=== PATIENT | female | born 1945 | race Caucasian/White ===

== ENCOUNTER 2019-09-20 10:26 | Outpatient (CLI) | payer MEDICARE, SELFPAY ==
[2019-09-20 10:55] LABS: Add Urine Microscopic? YES; Appearance Urine Cloudy (Clear); Bilirubin Urine Negative (Negative); Blood Urine Negative (Negative); Color Urine Yellow (Yellow); Glucose Urine UA Negative (Negative); Ketones Urine Negative (Negative); Leukocyte Esterase Ur 1+ LEU/UL (NEGATIVE); Mucus Urine Rare /lpf; Nitrate Urine Positive (Negative); Protein Urine Negative (Negative); RBC Urine 0-2 /hpf (0-2); Specific Grav Ur 1.013 (1.001-1.035); Squamous Epithelial Cell Urine Rare /hpf (Few); Urobilinogen Urine Negative mg/dL (<2.0)
[2019-09-20 10:58] LABS: Alanine Aminotransferase 24 U/L (4-35); Albumin Level 4.2 g/dL (3.5-5.1); Alkaline Phosphatase 44 U/L (38-126); Aspartate Amino Transferase 25 U/L (14-36); Bilirubin,Total 0.5 mg/dL (0.2-1.3)
== END 2019-09-20 10:27 | disposition home or self-care (01) ==
LOC: ANHLAB 10:28
PROVIDERS: PCP Family Medicine; Visit Provider Family Medicine
DX: R74.0 Nonspecific elevation of levels of transaminase and lactic acid dehydrogenase [LDH] (principal); R35.0 Frequency of micturition
CPT/HCPCS: 36415; 80076; 81001

== ENCOUNTER → 2020-01-20 13:48 | Outpatient (CLI) | payer MEDICARE, SELFPAY ==
--- NOTE | ~2020-01-20 | MM_ITS ---
EXAMINATION: MM screening [facility] BI w shayy HISTORY: Screening mammogram TECHNIQUE: Craniocaudal and mediolateral oblique 3-D tomosynthesis images were obtained and synthetic 2-D images were generated. CAD analysis was submitted and interpreted. COMPARISON: 11/13/2018, 09/28/2016, 09/26/2016, 09/14/2015 BREAST PARENCHYMAL COMPOSITION: The breasts are heterogeneously dense, which may obscure small masses . FINDINGS: There is no evidence of suspicious mass, calcification, or architectural distortion to sugg est malignancy in either breast. There has been no suspicious interval change. IMPRESSION: 1. No mammographic evidence of malignancy. 2. Recommend routine screening mammography in one year. BI-RADS Category 1: Negative Reviewed, dictated and finalized at location A.
== END ==
PROVIDERS: PCP Family Medicine; Visit Provider Physician Assistant
DX: Z12.31 Encounter for screening mammogram for malignant neoplasm of breast (principal)
CPT/HCPCS: 77063; 77067

== ENCOUNTER 2020-12-14 07:04 | Outpatient (CLI) | payer MEDICARE, SELFPAY ==
[2020-12-14 08:30] LABS: Alanine Aminotransferase 24 U/L (4-35); Albumin Level 4.3 g/dL (3.5-5.1); Alkaline Phosphatase 51 U/L (38-126); Anion Gap 7 mmol/L (8-16); Aspartate Amino Transferase 27 U/L (14-36); Bilirubin,Total 0.4 mg/dL (0.2-1.3); Blood Urea Nitrogen 17 mg/dL (7-17); Calcium 9.2 mg/dL (8.4-10.2); Carbon Dioxide 29 mmol/L (22-30); Chloride 104 mmol/L (98-107); Cholesterol 198 mg/dL (0-200); Estimated Glomerular Filt Rate > 60; Glucose 87 mg/dL (65-110); HDL Direct 63 mg/dL; Potassium 4.5 mmol/L (3.4-5.0); Sodium 140 mmol/L (137-145); Triglycerides 72 mg/dL (<150)
[2020-12-14 08:42] LABS: LDL Cholesterol Direct 100 mg/dL
== END 2020-12-14 07:05 | disposition home or self-care (01) ==
LOC: ANHLAB 07:06
PROVIDERS: PCP Family Medicine; Visit Provider Family Medicine
DX: E78.5 Hyperlipidemia, unspecified (principal)
CPT/HCPCS: 36415; 80053; 80061

== ENCOUNTER → 2021-04-12 13:04 | Outpatient (CLI) | payer MEDICARE, SELFPAY ==
--- NOTE | ~2021-04-12 | MM_ITS ---
EXAMINATION: MM screening [facility] BI w shayy HISTORY: Screening mammogram TECHNIQUE: Craniocaudal and mediolateral oblique 3-D tomosynthesis images were obtained and synthetic 2-D images were generated. CAD analysis was submitted and interpreted. COMPARISON: 01/20/2020, 11/13/2018 BREAST PARENCHYMAL COMPOSITION: There are scattered areas of fibroglandular density. FINDINGS: There is no evidence of suspicious mass, calcification, or architectural distortion to sugg est malignancy in either breast. There has been no suspicious interval change. IMPRESSION: 1. No mammographic evidence of malignancy. 2. Recommend routine screening mammography in one year. BI-RADS Category 1: Negative Reviewed, dictated and finalized at location A. 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
== END ==
PROVIDERS: PCP Family Medicine; Visit Provider Physician Assistant
DX: Z12.31 Encounter for screening mammogram for malignant neoplasm of breast (principal)
CPT/HCPCS: 77063; 77067

== ENCOUNTER 2021-04-25 10:28 | Outpatient (CLI) | payer MEDICARE, SELFPAY ==
--- NOTE | ~2021-04-25 | MR_ITS ---
EXAMINATION: MR lumbar spine wo [facility] EXAM DATE: 04/25/2021 11:15 INDICATION: Failing to improve with conservative measures. TECHNIQUE: Multi-sequential, multiplanar MR images of the lumbar spine were obtained without contrast . Sagittal T1, T2, T2 fat saturation images. Axial T2 weighted images. There is no prior study for comparison. FINDINGS: Mild to moderate disc disease from L2 through S1. There is 2 mm anterolisthesis L2 on L3, 3 mm anterolisthesis L3 on L4, 6 mm is anterolisthesis L4 on L5. No spondylolysis suspected. The conus medullaris terminates at the L1/2 level and has normal signal intensity and morphology. There is la rge hemangioma within the L3 vertebral body. Paraspinal soft tissue is unremarkable. Level by level evaluation: T12-L1: There is a mild diffuse disc bulge. Facet arthropathy: Mild. Neural foraminal stenosis: No stenosis. Central canal stenosis: No stenosis. L1-L2: There is a mild diffuse disc bulge. Facet arthropathy: Mild. Neural foraminal stenosis: No stenosis. Central canal stenosis: No stenosis. L2-L3: There is a moderate diffuse disc bulge. Facet arthropathy: Moderate to severe . Ligamentum flavum enlargement. Neural foraminal stenosis: Mild to moderate bilateral, right greater than left. Central canal stenosis: Mild to moderate. L3-L4: There is a moderate diffuse disc bulge. Facet arthropathy: Moderate to severe . Ligamentum flavum enlargement. Neural foraminal stenosis: Moderate left, mild to moderate right. Central canal stenosis: Mild to moderate. L4-L5: There is a large diffuse disc bulge. Facet arthropathy: Severe . Ligamentum flavum enlargement. Neural foraminal stenosis: Moderate bilateral, left greater than right. Central canal stenosis: Severe. L5-S1: There is a mild diffuse disc bulge. Facet arthropathy: Moderate to severe. Neural foraminal stenosis: Mild to moderate bilateral. Central canal stenosis: Mild. Compared to 2016, mild progression in spondylosis and subluxations. IMPRESSION: L4-5 grade 2 anterolisthesis, severe central canal stenosis without spondylolysis suspect ed. Less spondylosis other levels. Reviewed, dictated and finalized at location A. RNMENT AFFAIRS DIRECTOR IMPRESSION: L4-5 grade 2 anterolisthesis, severe central canal stenosis without spondylolysis suspected. Less spondylosis other levels.
== END 2021-04-25 10:29 | disposition home or self-care (01) ==
LOC: ANHIMG 10:33
PROVIDERS: PCP Family Medicine; Visit Provider Family Medicine
DX: M54.16 Radiculopathy, lumbar region (principal)
CPT/HCPCS: 72148

== ENCOUNTER → 2021-05-17 09:43 | Outpatient (CLI) | payer MEDICARE, SELFPAY ==
--- NOTE | ~2021-05-17 | CT_ITS ---
EXAMINATION: CT lumbar spine wo con DATE: 05/17/2021 10:00 INDICATION: Lumbar radiculopathy. Lumbar stenosis. TECHNIQUE: Computed tomography (CT) of the lumbar spine was performed without intravenous contrast. A utomated exposure control and iterative reconstruction technique were employed. The dose-length produ ct was 570.78 mGy-cm. COMPARISON: Lumbar spine MRI 04/25/2021 FINDINGS: There is 8 degrees levocurvature of lumbar spine. There is 3 mm anterolisthesis of L2 on L3 and L3 on L4 and 6 mm anterolisthesis of L4 on L5. Vertebral body heights are normal. There is mildl y decreased disc height at L2-L3 and L4-L5 and moderately decreased disc height at L5-S1. The followi ng disc levels are specifically discussed: L1-L2: The disc is bulging. There is mild bilateral facet joint osteoarthritis. There is mild left ne ural foraminal stenosis. There is mild central canal stenosis. L2-L3: The disc is bulging. There is severe bilateral facet joint osteoarthritis. There is mild bilat eral neural foraminal stenosis. There is mild central canal stenosis. L3-L4: The disc is bulging. There is severe bilateral facet joint osteoarthritis. There is moderate b ilateral neural foraminal stenosis. There is mild central canal stenosis. L4-L5: The disc is bulging. There is severe bilateral facet joint osteoarthritis. There is moderate b ilateral neural foraminal stenosis. There is severe central canal stenosis. L5-S1: The disc is bulging. There is severe bilateral facet joint osteoarthritis. There is mild bilat eral neural foraminal stenosis. There is mild central canal stenosis. IMPRESSION: 1. Severe lumbar spondylosis, stable from 04/25/2021. Reviewed, dictated and finalized at location A. TICIAN APPRENTICE
== END ==
PROVIDERS: PCP Family Medicine
DX: M47.27 Other spondylosis with radiculopathy, lumbosacral region (principal); M43.16 Spondylolisthesis, lumbar region; M48.062 Spinal stenosis, lumbar region with neurogenic claudication
CPT/HCPCS: 72131

== ENCOUNTER → 2021-08-06 10:54 | Outpatient (CLI) | payer MEDICARE, SELFPAY ==
--- NOTE | ~2021-08-06 | DEXA_ITS ---
Bone Density Report Name: SE JAMES Age: 76 Sex: Female Ethnicity: White Date of : 1945 Indication: osteopenia; monitoring treatment; height loss; Referring Provider: DULCE HATCH Study: Bone densitometry was performed. Exam Date: August 06, 2021 Accession number: [id number] Bone Density: Region BMD T-score Z-score Classification AP Spine (L1-L4) 1.032 -0.1 2.2 Normal Femoral Neck (Left) 0.656 -1.7 0.3 Osteopenia Total Hip (Left) 0.770 -1.4 0.3 Osteopenia Femoral Neck (Right) 0.588 -2.3 -0.3 Osteopenia Total Hip (Right) 0.786 -1.3 0.5 Osteopenia Total Hip Mean 0.778 -1.4 0.4 Osteopenia World Health Organization criteria for BMD impression classify patients as: Normal (T-score at or above -1.0), Osteopenia (T-score between -1.0 and -2.5), or Osteoporosis (T-score at or below -2.5). 10-year Fracture Risk: FRAX not reported because: Treated for osteoporosis Previous Exams: Region Exam Age BMD T-score BMD Change BMD Change Date g/cm2 vs Baseline vs Previous AP Spine(L1-L4) 08/06/2021 76 1.032 -0.1 0.169* 0.045* 12/26/2018 73 0.987 -0.5 0.124* 0.124* 09/14/2015 70 0.863 -1.7 Total Hip(Left) 08/06/2021 76 0.770 -1.4 -0.007 0.026 12/26/2018 73 0.744 -1.6 -0.032* -0.032* 09/14/2015 70 0.776 -1.4 Total Hip(Right) 08/06/2021 76 0.786 -1.3 -0.010 0.043* 12/26/2018 73 0.743 -1.6 -0.054* -0.054* 09/14/2015 70 0.796 -1.2 *Denotes significance at 95% confidence level, LSC for AP Spine = 0.022 g/cm2, LSC for Total Hip = 0.027 g/cm2 Clinical Information Provided by Patient: Is being treated for osteoporosis Has used the following medications: Fosamax (i.e. alendronate), Vitamin D, Calcium Patient maximum height was 65.0 Menopause Age: 62 No regular weight bearing exercise Drinks caffeinated beverages Onset of menses at age 15 Number of children 3 Impression: The patient has low bone mass, based on the Right Femoral Neck T-score. No significant bone loss was observed. Discussion: PATIENT UNDER TREATMENT WITH NO SIGNIFICANT BMD LOSS SINCE LAST EXAM. In an untreated patient, BMD typically declines with age. A lack of decline or gain is usually a sign that treatment is efficacious and fracture risk is reduced. It is important to ask patients whether they are taking their medications and to encourage continu
== END ==
PROVIDERS: PCP Family Medicine
DX: Z78.0 Asymptomatic menopausal state (principal); M85.89 Other specified disorders of bone density and structure, multiple sites
CPT/HCPCS: 77080

== ENCOUNTER 2021-12-25 08:00 | Outpatient (NON) | payer MEDICARE, SELFPAY | END 2021-12-25 08:01 | disposition home or self-care (01) | LOC: ANHLAB 09:54 | PROVIDERS: PCP Family Medicine; Visit Provider Physician Assistant | DX: N39.0 Urinary tract infection, site not specified (principal) | CPT/HCPCS: 87077; 87086; 87186 ==

== ENCOUNTER 2022-01-03 07:13 | Outpatient (CLI) | payer MEDICARE, SELFPAY ==
[2022-01-03 08:27] LABS: Add Urine Microscopic? YES; Appearance Urine Slightly Cloudy (Clear); Bilirubin Urine Negative (Negative); Blood Urine Negative (Negative); Color Urine Yellow (Yellow); Glucose Urine UA Negative (Negative); Ketones Urine Negative (Negative); Leukocyte Esterase Ur Trace LEU/UL (NEGATIVE); Nitrate Urine Positive (Negative); Protein Urine Negative (Negative); Urobilinogen Urine 0.2 mg/dL (<2.0); pH Urine 6.5 (5.0-9.0)
[2022-01-03 08:35] LABS: RBC Urine 0-2 /hpf (0-2)
== END 2022-01-03 07:14 | disposition home or self-care (01) ==
PROVIDERS: PCP Family Medicine; Visit Provider Physician Assistant
DX: N39.0 Urinary tract infection, site not specified (principal); R30.0 Dysuria
CPT/HCPCS: 81001; 87077; 87086; 87186

== ENCOUNTER 2022-01-08 07:00 | Outpatient (CLI) | payer MEDICARE, SELFPAY ==
[2022-01-08 08:11] LABS: Appearance Urine Clear (Clear); Bilirubin Urine Negative (Negative); Blood Urine Negative (Negative); Color Urine Yellow (Yellow); Glucose Urine UA Negative (Negative); Ketones Urine Negative (Negative); Leukocyte Esterase Ur Negative LEU/UL (Negative); Nitrate Urine Negative (Negative); Protein Urine Negative (Negative); Specific Grav Ur 1.015 (1.001-1.035); Urobilinogen Urine 0.2 mg/dL (<2.0)
[2022-01-08 08:55] LABS: Add Urine Microscopic? NO
== END 2022-01-08 07:01 | disposition home or self-care (01) ==
PROVIDERS: PCP Family Medicine; Visit Provider Physician Assistant
DX: N39.0 Urinary tract infection, site not specified (principal)
CPT/HCPCS: 81003

== ENCOUNTER → 2022-08-23 13:42 | Outpatient (CLI) | payer MEDICARE, SELFPAY ==
--- NOTE | ~2022-08-23 | MM_ITS ---
EXAMINATION: MM screening [facility] BI w shayy HISTORY: Screening TECHNIQUE: Craniocaudal and mediolateral oblique 3-D tomosynthesis images were obtained and synthetic 2-D images were generated. CAD analysis was submitted and interpreted. COMPARISON: Comparison to multiple prior studies sequentially, with oldest reviewed study dated 05/2016. BREAST PARENCHYMAL COMPOSITION: Breast composed of scattered areas of fibroglandular density FINDINGS: There is no evidence of suspicious mass, calcification, or architectural distortion to sugg est malignancy in either breast. There has been no suspicious interval change. IMPRESSION: 1. No mammographic evidence of malignancy. 2. Recommend routine screening mammography in one year. BI-RADS Category 2: Benign finding(s). Reviewed, dictated and finalized at location A.
== END ==
PROVIDERS: PCP Family Medicine; Visit Provider Family Medicine
DX: Z12.31 Encounter for screening mammogram for malignant neoplasm of breast (principal)
CPT/HCPCS: 77063; 77067

== ENCOUNTER 2022-08-31 09:53 | Outpatient (CLI) | payer MEDICARE, SELFPAY ==
[2022-08-31 10:18] LABS: Basophils Absolute Auto 0.1 K/mm3 (0.0-0.1); Basophils Percent Auto 0.9 % (0.2-1.2); Eosinophils Absolute Auto 0.2 K/mm3 (0-0.3); Hematocrit 37.2 % (37.0-47.0); Immature Granulocyte Absolute 0.07 K/mm3 (0.00-0.031); Immature Granulocyte Percent A 1.1 % (0-0.5); Lymphocytes Absolute Auto 1.49 K/mm3 (0.9-3.2); Lymphocytes Percent Auto 22.6 % (18.3-44.2); Mean Corpuscular HGB Conc 32.3 g/dl (32-36); Mean Corpuscular Hemoglobin 29.5 pg (26-34); Mean Corpuscular Volume 91.4 fl (80-100); Mean Platelet Volume 8.9 fl (7.4-10.4); Monocytes Absolute Auto 0.6 K/mm3 (0.1-0.6); Monocytes Percent Auto 9.7 % (2.6-8.5); Neutrophils Absolute Auto 4.1 K/mm3 (1.3-6.7); Neutrophils Percent Auto 62.7 % (45.5-73.1); Platelet Count Result 286 k/mm3 (150-375); Red Blood Count 4.07 M/mm3 (4.2-5.4); Red Cell Distribution Width 13.3 % (11.5-14.5); White Blood Count 6.6 K/mm3 (4.5-10.0)
[2022-08-31 10:30] LABS: Anion Gap 2 mmol/L (8-16); Blood Urea Nitrogen 15 mg/dL (7-17); Calcium 8.5 mg/dL (8.4-10.2); Carbon Dioxide 32 mmol/L (22-30); Chloride 101 mmol/L (98-107); Estimated Glomerular Filt Rate > 60; Glucose 86 mg/dL (65-110); Potassium 4.4 mmol/L (3.4-5.0); Sodium 135 mmol/L (137-145)
[2022-08-31 11:18] LABS: Appearance Urine Clear (Clear); Bilirubin Urine Negative (Negative); Blood Urine Negative (Negative); Color Urine Yellow (Yellow); Glucose Urine UA Negative (Negative); Ketones Urine Negative (Negative); Leukocyte Esterase Ur Negative LEU/UL (Negative); Nitrate Urine Negative (Negative); Protein Urine Negative (Negative); Specific Grav Ur 1.005 (1.001-1.035); Urobilinogen Urine 0.2 mg/dL (<2.0); pH Urine 7.5 (5.0-9.0)
[2022-08-31 11:21] LABS: Add Urine Microscopic? NO
== END 2022-08-31 09:54 | disposition home or self-care (01) ==
PROVIDERS: PCP Family Medicine; Visit Provider Nurse Practitioner Family
DX: M16.9 Osteoarthritis of hip, unspecified (principal); Z92.29 Personal history of other drug therapy; M81.0 Age-related osteoporosis without current pathological fracture
CPT/HCPCS: 36415; 80048; 81003; 85025

== ENCOUNTER 2023-01-02 15:40 | Outpatient (CLI) | payer MEDICARE, SELFPAY ==
[2023-01-02 18:38] LABS: Anion Gap 3 mmol/L (8-16); Blood Urea Nitrogen 17 mg/dL (7-17); Calcium 8.9 mg/dL (8.4-10.2); Carbon Dioxide 31 mmol/L (22-30); Chloride 101 mmol/L (98-107); Estimated Glomerular Filt Rate > 60; Glucose 106 mg/dL (65-110); Potassium 3.5 mmol/L (3.4-5.0); Sodium 135 mmol/L (137-145)
[2023-01-02 18:47] LABS: Basophils Absolute Auto 0.1 K/mm3 (0.0-0.1); Basophils Percent Auto 0.5 % (0.2-1.2); Eosinophils Absolute Auto 0.2 K/mm3 (0-0.3); Eosinophils Percent Auto 2.2 % (0-4.4); Hematocrit 37.7 % (37.0-47.0); Hemoglobin 12.3 g/dL (12.0-15.0); Immature Granulocyte Absolute 0.04 K/mm3 (0.00-0.031); Immature Granulocyte Percent A 0.4 % (0-0.5); Lymphocytes Absolute Auto 1.75 K/mm3 (0.9-3.2); Lymphocytes Percent Auto 19.1 % (18.3-44.2); Mean Corpuscular HGB Conc 32.6 g/dl (32-36); Mean Corpuscular Hemoglobin 29.9 pg (26-34); Mean Corpuscular Volume 91.7 fl (80-100); Mean Platelet Volume 9.3 fl (7.4-10.4); Monocytes Absolute Auto 0.7 K/mm3 (0.1-0.6); Monocytes Percent Auto 7.8 % (2.6-8.5); Neutrophils Absolute Auto 6.4 K/mm3 (1.3-6.7); Platelet Count Result 313 k/mm3 (150-375); Red Blood Count 4.11 M/mm3 (4.2-5.4); Red Cell Distribution Width 12.7 % (11.5-14.5); White Blood Count 9.2 K/mm3 (4.5-10.0)
== END 2023-01-02 15:41 | disposition home or self-care (01) ==
LOC: ANHGOSHLAB 15:42
PROVIDERS: PCP Family Medicine; Visit Provider Family Medicine
DX: Z01.818 Encounter for other preprocedural examination (principal)
CPT/HCPCS: 36415; 80048; 85025

== ENCOUNTER 2023-02-15 14:35 | Emergency (ER) | payer MEDICARE, SELFPAY ==
--- NOTE | ~2023-02-15 | XR_ITS ---
XR knee RT 3V DATE: 02/15/2023 16:19 INDICATION: Lateral knee joint pain. Knee surgery 2 weeks ago TECHNIQUE: AP, lateral and sunrise views COMPARISON: 06/20/2022 right knee FINDINGS: There has been interval medial compartment surgical joint replacement. There is periarticular spurring of the patellofemoral joint consistent with patellofemoral osteoarthr itis. The lateral compartment joint space is well preserved. No fracture or dislocation dictation, radiopaque intra-articular loose body or chondrocalcinosis, per iosteal reaction or bone destruction is detected. IMPRESSION: Recent medial compartment joint replacement Patellofemoral osteoarthritis Reviewed, dictated and finalized at location A.
[2023-02-15 14:57] VITALS: BP 144/96; PULSE 62; RESP 18; TEMP 36.4; O2SAT 100
--- NOTE | 2023-02-15 17:57 | ED.GENADULT ---
HPI - General Adult General Chief complaint: Extremity Problem,Nontraumatic Stated complaint: pain in posterior knee Time Seen by Provider: 02/15/23 17:47 History of Present Illness HPI narrative: Mariya Reyez is a 77 y/o female who presents with reports of a right knee replacement a little over 2 weeks ago, she states she has been doing well and able to ambulate without assistance. She states she did a little shopping today and afterwards she felt her right knee sort of lock up and she was afraid to put weight on her knee so she then lowered herself down to the ground and her friend helped her up. SHe reports that she is having a new pain to the right lateral aspect of her right knee. Related Data Home Medications Medication Instructions Recorded Confirmed vitamins A,C,U-gijw-azwycw 2,148 2 tablet PO BID 12/24/21 01/02/23 mcg-113 mg-45 mg-17.4 mg tablet (PreserVision AREDS) calcium carbonate 600 mg-vitamin 1 tablet PO BID 01/14/22 01/02/23 D3 20 mcg (800 unit) tablet denosumab 60 mg/mL subcutaneous 60 mg subcut [id number] 01/02/23 01/02/23 syringe (Prolia) Allergies Allergy/AdvReac Type Severity Reaction Status Date / Time No Known Allergies Allergy Verified 02/15/23 15:02 Review of Systems Review of Systems: CONSTITUTIONAL: Denies fever, chills, or sweats. EYES: Denies visual changes, redness, or discharge. ENT: Denies rhinorrhea, congestion, sore throat, or otalgia. CARDIOVASCULAR: Denies chest pain, palpitations, or edema. RESPIRATORY: Denies cough or dyspnea. GASTROINTESTINAL: Denies abdominal pain, nausea, vomiting, or diarrhea. GENITOURINARY: Denies dysuria or hematuria. SKIN: Denies rash or itching. MUSCULOSKELETAL: Denies back pain, Complains of pain to her right knee , or myalgia. NEUROLOGIC: Denies headache, numbness, dizziness, or weakness. PSYCHIATRIC: Denies anxiety or depression. 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 Ganglion cyst of dorsum of right wrist Hepatitis C antibody test negative (11/09/13) Left hip pain Lumbar radiculopathy Personal history of other drug therapy Right knee DJD Trigger finger Surgical History Surgical History Status post lumbar spine operative procedure for decompression of spinal cord Social History Social History Smoking status: Never smoker Alcohol intake: never Substance use: never Lack of Transportation: No Lack of Food: Never True Current Housing: I Have Housing Concerned About Future Housing: No Difficulty Paying Gas/Electric Bills: No Difficulty Paying for Meds: No Currently Unemployed: No Education: Bachelor's Degree Difficulty w/ Childcare or Family Care: No Living arrangements: with family Additional living arrangements comments: Spiritual care concerns: No Exam Narrative: GENERAL: Well-appearing, well-nourished, and in no acute distress. HEAD: Normocephalic, atraumatic. EYES: PERRLA and EOMI. ENT: Nares clear, no rhinorrhea or epistaxis. Mucous membranes moist. Oropharynx without tonsillar hypertrophy exudate or other lesions. Bilateral TMs pearly aggarwal nonbulging NECK: Supple. No adenopathy or masses. No carotid bruits or JVD CHEST: Clear to auscultation. No respiratory distress. No wheezes rales or rhonchi HEART: Regular rate and rhythm. No murmur heard. Normal peripheral pulses. ABDOMEN: Soft, nontender, nondistended, normal active bowel sounds. EXTREMITIES: Normal range of motion to her knee, distal pulses present, mild swelling to the lateral aspect, no warmth or concern for infection SKIN: Warm, dry, no rash. NEURO: No focal deficits. Alert and oriented x3. PSYCH: Normal mood and affect. Course Vital Signs Vital signs
== END 2023-02-15 18:27 | disposition home or self-care (01) ==
PROVIDERS: Emergency Provider Nurse Practitioner Family; PCP Family Medicine
DX: M25.561 Pain in right knee (principal); Z96.651 Presence of right artificial knee joint; M17.11 Unilateral primary osteoarthritis, right knee; M81.0 Age-related osteoporosis without current pathological fracture; M19.049 Primary osteoarthritis, unspecified hand; M16.9 Osteoarthritis of hip, unspecified
CPT/HCPCS: 73562; 99283

== ENCOUNTER 2023-04-10 11:00 | Outpatient (RCR) | payer MEDICARE, SELFPAY ==
--- NOTE | 2023-02-13 12:46 | OPREHPOC ---
Outpatient Therapy Plan of Care This is a Multidisciplinary Plan of Care that may contain components documented by all disciplines (PT, OT, and ST.) PT Problem 1 PT Problem #1 Knowledge Deficit PT Goal 1 Goal Pt to be IND with issued HEP Target Visit 4 PT Problem 2 PT Problem #2 Pain PT Goal 1 Goal Pt to report R knee pain no greater than 3/10 in the last week Target Visit 4 PT Goal 2 Goal Pt to report 75% improvement in overall knee symptoms Target Visit 4 PT Problem 3 PT Problem #3 Impaired Range of Motion PT Goal 1 Goal Pt to demonstrates full R knee extension to 0 deg Target Visit 4 PT Goal 2 Goal Pt to demonstrate R knee passive flexion to 130 deg Target Visit 4 PT Problem 4 PT Problem #4 Impaired Gait PT Goal 1 Goal Pt to ambulate stairs without an increase in pain or deviations Target Visit 4 PT Goal 2 Goal Pt to improve 2 min walk distance from 415ft to 475ft Target Visit 4
--- NOTE | 2023-02-13 12:46 | PTOPEVAL1 ---
Assessment and note entered by Lina Warren, PT, DPT Evaluation Information Assessment Status Evaluation Diagnosis R partial knee replacement Onset 01/27/23 Subjective Information Pt states she had a partial knee replacement on 01/27/23. She reports she has started to perform steps with a reciprocal pattern but these are more painful than normal. Reported Pain Level Pain Score 3: Self Report Assessment PT Clinical Summary Mariya presents to therapy today for her initial evaluation following a R medial partial knee replacement on 01/27/23. Today she demonstrates functional ROM but this is decreased from her L knee, she is lacking about 5 deg terminal knee extension. She demonstrates deviations while navigating stairs and reports increased pain when performing functional tasks. Skilled therapy services are indicated to improve ROM, strength, ambulation, and return to PLOF. Plan of Care Interventions Electrical Stimulation,Gait Training,Hot Pack/Cold Pack,Manual Therapy,Neuro Re-education,Patient/ Caregiver Educati,Therapeutic Activities, Therapeutic Exercise PT Services Indicated Yes Treatment Frequency and 1x/wk for 4 visits Duration These treatments will address the objective and functional deficits as defined above. The patient will be advanced safely and appropriately in order for the patient to progress towards his/her prior level of function. Additional exercises will be introduced and as well as a comprehensive home exercise program upon discharge, if needed, ?to ensure carryover of functional gains achieved in the clinic. This treatment plan has been reviewed and agreement upon by the patient.
--- NOTE | 2023-03-13 15:45 | PTOPPROG ---
Assessment and note entered by Lina Warren, PT, DPT Evaluation Information Assessment Status Progress Diagnosis R partial knee replacement Onset 01/27/23 Subjective Information Pt states her flexibility and movement is doing really well. She states she is still getting some swelling and heat under her patella. Assessment PT Clinical Summary Mariya presents to therapy today for her progress report following 4 visits of skilled therapy to treat her R medial partial knee replacement on 01/27. Today she demonstrates improved active flexion ROM, now equal to her L side, but continues to last about 8 deg from terminal knee extension. She ambulates with lack of terminal knee extension and accessory hip/pelvic motion. Continuation of skilled therapy services are indicated to improve knee extnesion, functional strength, gait, and return to PLOF. Plan of Care Interventions Electrical Stimulation,Gait Training,Hot Pack/Cold Pack,Manual Therapy,Neuro Re-education,Patient/ Caregiver Educati,Therapeutic Activities, Therapeutic Exercise PT Services Indicated Yes Treatment Frequency and 1x/wk for 4 visits Duration These treatments will address the objective and functional deficits as defined above. The patient will be advanced safely and appropriately in order for the patient to progress towards his/her prior level of function. Additional exercises will be introduced and as well as a comprehensive home exercise program upon discharge, if needed, ?to ensure carryover of functional gains achieved in the clinic. This treatment plan has been reviewed and agreement upon by the patient.
--- NOTE | 2023-04-10 11:45 | PTOPDC ---
Assessment and note entered by Lina Warren, PT, DPT Evaluation Information Assessment Status Discharge Diagnosis R partial knee replacement Onset 01/27/23 Subjective Information Overall she states her knee is doing much better. She states she is still fearful of loading all of her weight onto her RLE, she also states getting up from the ground has been difficult. Pt reports 80-85% improvement in overall symptoms. Reported Pain Level Pain Score 1: Self Report Assessment PT Clinical Summary Mariya presents to therapy today for her progress report following 8 visits of skilled therapy to treat her R medial partial knee replacement on 01/27. Today she demonstrates improved knee ROM, improved gait, and improved LE strength. She has met all of her therapy goals at this time and does not require additional services. Pts HEP was progressed today and she was instructed to continue this upon discharge.
== END 2023-04-10 13:43 | disposition home or self-care (01) ==
LOC: ANHGOSHPT 11:00
PROVIDERS: PCP Family Medicine; Visit Provider Family Medicine
DX: Z47.1 Aftercare following joint replacement surgery (principal); Z96.651 Presence of right artificial knee joint
CPT/HCPCS: 97110; 97140; 97161; 97530

== ENCOUNTER 2023-08-19 07:14 | Outpatient (CLI) | payer MEDICARE, SELFPAY ==
[2023-08-19 07:52] LABS: Basophils Absolute Auto 0.1 K/mm3 (0.0-0.1); Basophils Percent Auto 0.8 % (0.2-1.2); Eosinophils Absolute Auto 0.2 K/mm3 (0-0.3); Eosinophils Percent Auto 3.6 % (0-4.4); Hematocrit 39.1 % (37.0-47.0); Hemoglobin 12.4 g/dL (12.0-15.0); Immature Granulocyte Absolute 0.05 K/mm3 (0.00-0.031); Immature Granulocyte Percent A 0.8 % (0-0.5); Lymphocytes Absolute Auto 1.44 K/mm3 (0.9-3.2); Lymphocytes Percent Auto 22.3 % (18.3-44.2); Mean Corpuscular HGB Conc 31.7 g/dl (32-36); Mean Corpuscular Hemoglobin 29.2 pg (26-34); Mean Corpuscular Volume 92.2 fl (80-100); Monocytes Absolute Auto 0.7 K/mm3 (0.1-0.6); Monocytes Percent Auto 10.5 % (2.6-8.5); Platelet Count Result 305 k/mm3 (150-375); Red Blood Count 4.24 M/mm3 (4.2-5.4); Red Cell Distribution Width 13.4 % (11.5-14.5); White Blood Count 6.5 K/mm3 (4.5-10.0)
[2023-08-19 08:12] LABS: Anion Gap 3 mmol/L (8-16); Blood Urea Nitrogen 15 mg/dL (7-17); Calcium 9.4 mg/dL (8.4-10.2); Carbon Dioxide 33 mmol/L (22-30); Chloride 104 mmol/L (98-107); Estimated Glomerular Filt Rate > 60; Glucose 85 mg/dL (65-110); Potassium 3.6 mmol/L (3.4-5.0); Sodium 140 mmol/L (137-145)
== END 2023-08-19 07:15 | disposition home or self-care (01) ==
PROVIDERS: PCP Family Medicine; Visit Provider Nurse Practitioner Family
DX: K63.5 Polyp of colon (principal); E66.3 Overweight; E78.2 Mixed hyperlipidemia; M81.0 Age-related osteoporosis without current pathological fracture; R74.01 Elevation of levels of liver transaminase levels
CPT/HCPCS: 36415; 80048; 84443; 85025

== ENCOUNTER 2023-09-22 12:29 | Outpatient (CLI) | payer MEDICARE, SELFPAY ==
--- NOTE | ~2023-09-22 | MM_ITS ---
EXAMINATION: MM screening [facility] BI w shayy HISTORY: Screening mammogram TECHNIQUE: Craniocaudal and mediolateral oblique 3-D tomosynthesis images were obtained and synthetic 2-D images were generated. CAD analysis was submitted and interpreted. COMPARISON: 08/23/2022, 04/12/2021, 01/20/2020 bilateral screening mammogram examinations BREAST PARENCHYMAL COMPOSITION: There are scattered areas of fibroglandular density. FINDINGS: Stable mild fibroglandular asymmetry. There is no evidence of suspicious mass, calcificatio n, or architectural distortion to suggest malignancy in either breast. There has been no suspicious i nterval change. IMPRESSION: 1. No mammographic evidence of malignancy. 2. Recommend routine screening mammography in one year. BI-RADS Category 2: Benign finding(s). Reviewed, dictated and finalized at location A.
== END 2023-09-22 12:30 ==
PROVIDERS: PCP Family Medicine; Visit Provider Family Medicine
DX: Z12.31 Encounter for screening mammogram for malignant neoplasm of breast (principal); M81.0 Age-related osteoporosis without current pathological fracture
CPT/HCPCS: 77063; 77067

== ENCOUNTER 2023-10-13 11:25 | Outpatient (CLI) | payer MEDICARE, SELFPAY ==
--- NOTE | ~2023-10-13 | DEXA_ITS ---
? Bone Density Report? Name:? SE JAMES) Patient ID:??? [id number] Age:? 78 Sex:? Female Ethnicity:? White Date of : 1945 Indication: postmenopausal; screening for osteoporosis; height loss; prior fracture; Referring Provider: YANY CLAROS Study: Bone densitometry was performed. Exam Date: October 13, 2023 Accession number: [id number] Bone Density: Region? BMD??? T-score? Z-score?? Classification AP Spine(L1, L2)? 0.898?? -0.7?1.6? Normal Femoral Neck (Left)? 0.839?? -0.1? 2.1? Normal Total Hip (Left)? 0.833?? -0.9?1.0? Normal Femoral Neck (Right)? 0.613?? -2.1? 0.0? Osteopenia Total Hip (Right)? 0.793?? -1.2? 0.6? Osteopenia Femoral Neck Mean? 0.726?? -1.1? 1.0? Osteopenia Total Hip Mean? 0.813?? -1.1? 0.8? Osteopenia World Health Organization criteria for BMD impression classify patients as: Normal (T-score at or above -1.0), Osteopenia (T-score between -1.0 and -2.5), or Osteoporosis (T-score at or below -2.5). 10-year Fracture Risk: FRAX not reported because: ? Treated for osteoporosis Clinical Information Provided by Patient: Has had a low trauma fracture Is being treated for osteoporosis Has used the following medications: Prolia (i.e. denosumab), Vitamin D, Calcium Patient maximum height was 65 Menopause Age: 57 No regular weight bearing exercise Does not regularly consume dairy products Drinks caffeinated beverages Onset of menses at age 14 Number of children 3 Impression: The patient has low bone mass, based on the Right Femoral Neck T- score. The patient has risk factors, including: previous fracture. Discussion: It is important to ask patients whether they are taking their medications and to encourage continued and appropriate compliance with their osteoporosis therapies to reduce fracture risk. It is also important to review their risk factors and encourage appropriate calcium and vitamin D intakes, exercise, fall prevention and other lifestyle measures. Follow-Up: Consider a repeat BMD and Vertebral Fracture Assessment (VFA) exam in 2 years or sooner if medically necessary, to reassess this patient's status. Reported by: Dr. Aldo Wagner on 10/16/2023 7:16:00 AM. BERNICE
== END 2023-10-13 11:26 | disposition home or self-care (01) ==
LOC: CHSIMG 11:27
PROVIDERS: PCP Family Medicine; Visit Provider Nurse Practitioner Family
DX: Z78.0 Asymptomatic menopausal state (principal); M85.89 Other specified disorders of bone density and structure, multiple sites
CPT/HCPCS: 77080

== ENCOUNTER 2024-01-18 12:41 | Outpatient (CLI) | payer MEDICARE, SELFPAY ==
--- NOTE | ~2024-01-18 | MR_ITS ---
EXAMINATION: MR lumbar spine wo con DATE: 01/18/2024 13:20 INDICATION: Low back pain. Degenerative disc disease. TECHNIQUE: Magnetic resonance imaging (MRI) of the lumbar spine was performed without intravenous con trast. Sequences included sagittal T2-weighted FSE, sagittal T2-weighted FS FSE, sagittal T1-weighted FSE, and axial T2-weighted FSE. COMPARISON: CT dated 05/17/2021 FINDINGS: 10 degree lumbar levoscoliosis. 3 mm anterolisthesis L3 on L4 and 6 mm anterolisthesis L4 on L5. Vert ebral body heights are normal. T1 hyperintense hemangioma in the right side of the L3 vertebral body. Marrow signal is otherwise normal. Interval L4 laminectomy and partial L5 laminectomy. Moderate disc height loss at L4-L5. Mild disc height loss at L1-L2 through L3-L4 and at L5-S1. There are annular f issures at each of the lumbar levels. The conus medullaris terminates at L1-L2. There is normal signa l in the caudal spinal cord. Paravertebral soft tissues are unremarkable. The following disc levels a re specifically discussed: T12-L1: Disc is mildly bulging. There is moderate bilateral facet joint osteoarthritis. There is mild left neural foraminal stenosis. There is mild central canal stenosis. L1-L2: Disc is bulging. There is moderate bilateral facet joint osteoarthritis. There is mild bilater al neural foraminal stenosis. There is mild central canal stenosis. L2-L3: Disc is bulging. There is hypertrophy of the ligamentum flavum. There is moderate to severe bi lateral facet joint osteoarthritis. There is moderate right and mild left neural foraminal stenosis. There is moderate central canal stenosis. L3-L4: Disc is bulging with superimposed disc extrusion extending from foraminal zone and foraminal z one with disc material extending up to 4 mm cephalad to the level of the inferior endplate of L3. The re is hypertrophy of the ligamentum flavum. There is severe bilateral facet joint osteoarthritis. Th ere is moderate bilateral neural foraminal stenosis. There is severe central canal stenosis. L4-L5: Disc is bulging superimposed disc extrusion extending from foraminal zone and foraminal zone w ith disc material extending up to 4 mm cefotetan along the inferior endplate of L4. There is severe b ilateral facet joint osteoarthritis. There is moderate bilateral neural foraminal stenosis. There is mild central canal stenosis with posterior decompression. L5-S1: Disc is bulging. There is severe bilateral facet joint osteoarthritis. There is mild to modera te bilateral neural foraminal stenosis. There is mild central canal stenosis. IMPRESSION: 1. Moderate lumbar spondylosis most notable for severe central canal stenosis at L3-L4 and interval p osterior decompression with L4 laminectomy and partial L5 laminectomy. Reviewed, dictated and finalized at location A. IMPRESSION: 1. Moderate lumbar spondylosis most notable for severe central canal stenosis a t L3-L4 and interval posterior decompression with L4 laminectomy and partial L5 laminectomy.
== END 2024-01-18 12:42 ==
LOC: GOSHIMG 12:43
PROVIDERS: PCP Family Medicine; Visit Provider Nurse Practitioner Acute Care
DX: M51.36 Other intervertebral disc degeneration, lumbar region (principal); M47.896 Other spondylosis, lumbar region
CPT/HCPCS: 72148

== ENCOUNTER 2024-03-13 11:40 | Outpatient (CLI) | payer MEDICARE, SELFPAY ==
[2024-03-13 12:02] LABS: Basophils Absolute Auto 0.1 K/mm3 (0.0-0.1); Basophils Percent Auto 0.9 % (0.2-1.2); Eosinophils Absolute Auto 0.2 K/mm3 (0-0.3); Eosinophils Percent Auto 3.1 % (0-4.4); Hematocrit 36.6 % (37.0-47.0); Immature Granulocyte Absolute 0.03 K/mm3 (0.00-0.031); Immature Granulocyte Percent A 0.4 % (0-0.5); Lymphocytes Absolute Auto 1.17 K/mm3 (0.9-3.2); Lymphocytes Percent Auto 15.3 % (18.3-44.2); Mean Corpuscular HGB Conc 32.8 g/dl (32-36); Mean Corpuscular Hemoglobin 30.4 pg (26-34); Mean Corpuscular Volume 92.7 fl (80-100); Mean Platelet Volume 8.9 fl (7.4-10.4); Monocytes Absolute Auto 0.8 K/mm3 (0.1-0.6); Monocytes Percent Auto 10.2 % (2.6-8.5); Neutrophils Absolute Auto 5.4 K/mm3 (1.3-6.7); Neutrophils Percent Auto 70.1 % (45.5-73.1); Platelet Count Result 289 k/mm3 (150-375); Red Blood Count 3.95 M/mm3 (4.2-5.4); Red Cell Distribution Width 13.1 % (11.5-14.5); White Blood Count 7.6 K/mm3 (4.5-10.0)
[2024-03-13 12:16] LABS: Alanine Aminotransferase 101 U/L (6-35); Albumin Level 4.1 g/dL (3.5-5.1); Alkaline Phosphatase 80 U/L (38-126); Anion Gap 6 mmol/L (4-12); Aspartate Amino Transferase 71 U/L (14-36); Bilirubin,Total 0.8 mg/dL (0.2-1.3); Blood Urea Nitrogen 12 mg/dL (7-17); Calcium 8.7 mg/dL (8.4-10.2); Carbon Dioxide 31 mmol/L (22-30); Chloride 101 mmol/L (98-107); Cholesterol 225 mg/dL (0-200); Estimated Glomerular Filt Rate 48; Glucose 93 mg/dL (65-110); HDL Direct 56 mg/dL; Potassium 4.5 mmol/L (3.4-5.0); Sodium 138 mmol/L (137-145); Triglycerides 302 mg/dL (<150)
[2024-03-13 12:27] LABS: LDL Cholesterol Direct 127 mg/dL
[2024-03-13 13:25] LABS: Vitamin D 25 Hydroxy 46.2 ng/mL
== END 2024-03-13 11:41 | disposition home or self-care (01) ==
LOC: ANHLAB 11:43
PROVIDERS: PCP Family Medicine; Visit Provider Nurse Practitioner Family
DX: E55.9 Vitamin D deficiency, unspecified (principal); E78.2 Mixed hyperlipidemia; E66.3 Overweight; M81.0 Age-related osteoporosis without current pathological fracture; R74.01 Elevation of levels of liver transaminase levels
CPT/HCPCS: 36415; 80053; 80061; 82306; 84443; 85025

== ENCOUNTER 2024-11-18 11:45 | Outpatient (CLI) | payer MEDICARE, SELFPAY ==
--- NOTE | ~2024-11-18 | MM_ITS ---
EXAMINATION: [facility] HISTORY: 09/22/2023, 08/23/2022 TECHNIQUE: Craniocaudal and mediolateral oblique 3-D tomosynthesis images were obtained and synthetic 2-D images were generated. CAD analysis was submitted and interpreted. COMPARISON: No prior mammogram is available for comparison at this institution. BREAST PARENCHYMAL COMPOSITION:Not Dense. There are scattered areas of fibroglandular density. FINDINGS: No suspicious mass, calcification, or architectural distortion are identified in either melissa ast to suggest malignancy. There has been no suspicious interval change. IMPRESSION: No mammographic evidence of malignancy. Recommend routine screening mammography in one year. BI-RADS Category 1: Negative Reviewed, dictated and finalized at location .
== END 2024-11-18 11:46 | disposition home or self-care (01) ==
LOC: CHSIMG 11:46
PROVIDERS: PCP Family Medicine; Visit Provider Family Medicine
DX: Z12.31 Encounter for screening mammogram for malignant neoplasm of breast (principal)
CPT/HCPCS: 77063; 77067

== ENCOUNTER 2024-12-10 10:26 | Outpatient (CLI) | payer MEDICARE, SELFPAY ==
--- OUTSIDE RECORDS SUMMARY | 2024-12-10 10:39 | XMS_ITS | Clinical Summary ---
Author Organization [facility] Address [address] [place] [address] Phone Care Team Providers Care Poultry Slaughterer Name Role Phone Ariel Yarbrough MD Primary Care Provider [phone] Allergies No known active allergies Medications atorvastatin (LIPITOR) 10 mg tablet Take 10 mg by mouth daily. Active CALCIUM CITRATE-VITAMIN D3 ORAL Take by mouth. Active alendronate (FOSAMAX) 70 mg tablet Take 70 mg by mouth every 7 days. empty stomach before other meds,with 8oz of water, stay upright 30 min Active OTHER AREDS EYE DROPS Active Active Problems No known active problems Family History Medical History Relation Name Comments Cancer Father Heart Disease Sister High Cholesterol Sister Relation Name Status Comments Father Sister Social History Tobacco Use Types Packs/Day Years Used Date Smoking Tobacco: Never Alcohol Use Standard Drinks/Week Comments Never 0 (1 standard drink = 0.6 oz pur e alcohol) Comments Unknown Sex and Gender Information Value Date Recorded Sex Assigned at Not on file Legal Sex Female 9:03 AM HOSPITALITY INTERN Gender Identity Not on file Sexual Orientation Not on file Last Filed Vital Signs Vital Sign Reading Time Taken Comments Blood Pressure 147/78 07/20/2021 9:07 AM HOSPITALITY INTERN Pulse 63 07/20/2021 9:07 AM HOSPITALITY INTERN Temperature 36.5 C (97.7 F) 07/20/2021 9:07 AM HOSPITALITY INTERN Respiratory Rate - - Oxygen Saturation - - Inhaled Oxygen Concentration - - Weight 67.1 kg (148 lb) 07/20/2021 9:07 AM HOSPITALITY INTERN Height 162.6 cm (5' 4) 07/20/2021 9:07 AM HOSPITALITY INTERN Body Mass Index 25.4 07/20/2021 9:07 AM HOSPITALITY INTERN Plan of Treatment Health Maintenance Due Date Last Done Comments DTAP/TDAP/TD VACCINES (1 - Tdap) 1966 OSTEOPOROSIS SCREENING 2012 PNEUMOCOCCAL VACCINE 50+ YEA RS (2 of 2 - PPSV23) 12/11/2018 12/11/2017 ZOSTER VACCINE (2 of 2) 05/10/2020 03/15/2020 RSV VACCINE (60+ or ) (1 - 1-dose 75+ series) 2022 INFLUENZA VACCINE (#1) 2024 , 02/28/2020, 03/08/2018 Insurance Care Teams Poultry Slaughterer Relationship Specialty Start Date End Date Ariel Yarbrough MD PCP - General Family Practice 06/21/21
--- OUTSIDE RECORDS SUMMARY | 2024-12-10 10:39 | XMS_ITS | Clinical Summary ---
Author Organization [facility] Address [address] [place] [address] Care Team Providers Care Alcohol Rubber Name Role Phone Ariel Yarbrough MD Primary Care Provider [phone]- [phone] Usama Savage MD Unavailable [phone] Source Comments [facility] [employer],non-owned Affiliates and Associated Physician Practices is amultiple site organization consisting of ambulatory clinics and hospital sitesin [place], [place], [place] and [place]. This disclosure is being madepursuant to the Care Everywhere program and may not contain all information available regarding this patient. Last updated 18.[facility] [employer] Allergies No known active allergies Medications * Be aware that medications may not be up to date on this document. Alwaysverify current medications with the patient. atorvastatin (LIPITOR) 10 MG tablet 12/11/2018 Active meloxicam (MOBIC) 15 MG tablet 01/08/2019 Active alendronate (FOSAMAX) 70 MG tablet 01/08/2019 Active meloxicam (MOBIC) 15 MG tablet Take 1 tablet by mouth once daily 90 tablet 1 01/23/2019 Active Social History Tobacco Use Types Packs/Day Years Used Date Smoking Tobacco: Never Assessed Comments Unknown Sex and Gender Information Value Date Recorded Sex Assigned at Not on file Legal Sex Female 12:47 PM CDT Gender Identity Not on file Sexual Orientation Not on file Plan of Treatment Health Maintenance Due Date Last Done Comments BONE DENSITY TESTING 1945 HEPATITIS C SCREENING 05/22/1965 DTAP/TDAP/TD VACCINES (1 - Tdap) 1966 PNEUMOCOCCAL VACCINE 50+ (1 of 1 - PCV) 1997 ZOSTER VACCINE (1 of 2) 1997 Respiratory Syncytial Virus (RSV) Vaccine Pt: or over 60 yrs (1 - 1-dose 75+ series) 2022 COVID-19 VACCINE (2023-2 5 season) 2024 DEPRESSION SCREENING 05/29/2024 MEDICARE AWV CALENDAR YEAR 2024 INFLUENZA VACCINE (#1) 2025 HEPATITIS B VACCINE Aged Out No longe r eligible based on patient's age to complete this topic HIB VACCINE Aged Out No longer eligi ble based on patient's age to complete this topic HPV VACCINE Aged Out No longer eligi ble based on patient's age to complete this topic MENINGOCOCCAL (Group B) VACC INE SHARED DECISION-MAKING Aged Out No longer eligibl e based on patient's age to complete this topic MENINGOCOCCAL GROUPS A/C/Y/W VACCINE Aged Out No longer eligible b ased on patient's age to complete this topic Insurance [facility] MANAGED MEDICARE ADV Care Teams Alcohol Rubber Relationship Specialty Start Date End Date Ariel Yarbrough MD [address] [place] [id number] PCP - General Family Medicine 01/09/19 [place] [id number] [address] Orthopedic Surgery 01/17/19
--- OUTSIDE RECORDS SUMMARY | 2024-12-10 10:39 | XMS_ITS | Patient Health Record ---
Author Organization [facility] Orthopedics [facility] Address [address] [place], [place] [address] Care Team Providers Care Complaint Evaluation Supervisor Name Role Phone Ariel Yarbrough Primary Care Provider Hernando Perales Unavailable [phone] ALLERGIES No Known Allergies REASON FOR REFERRAL No Information MEDICATIONS Medication SIG (Take, Route, Fr equency, Duration) Notes Start Date End Date Status Atorvastatin Calcium Active Vitamin D Active PreserVision AREDS 2 Active Proline Active SOCIAL HISTORY Tobacco Use: Social History Observation Description Date Details (start date - stop date) Never Smoker NA - NA Sex Assigned At : Social History Observation Description Sex Assigned At Unknown Tobacco Use/Smoking Question Answer Notes Are you a nonsmoker PROBLEMS Problem Type ICD Code Onset Dates Problem Status W/U Status Risk SNOMED Code Notes Problem Left hip pain (M25.552) Active confirmed Arthralgia of t he pelvic region and thigh (930993161) Problem Right knee pain (M25.561) Active confirmed Right knee pain (592018171941898) Problem Arthritis of right knee (M17.11) Active confirmed Arthritis of right knee (9842206011968394 ) Problem Antalgic gait (R26.89) Active confirmed Antalgic gait (07505732) Problem Presence of artificial knee joint (Z96.659) Active confirmed Artificial k nee joint present (212660215241) Problem Primary osteoarthritis of right knee (M17.11) Active confirmed Osteoarthritis of knee (831769951) Encounters Encounter Location Date Provider Diagnosis [facility] [address] [place], [place] [id number] 02/01/2024 Hernando De La Torre PLAN OF TREATMENT Pending Test Test Name Order Date X ray : Hip, left, 2 09/27/2022 X ray : Knee, right 2 views 12/27/2022 X ray : Knee, right 3 views 05/04/2023 X ray : Knee, right 3 views 11/24/2022 Insurance Providers Payer Name Payer Address Payer Phone Subscriber Number Group Number Insured Name Patient Relationship to Insured Coverage Start Date Coverage End Date [facility] [address] [address] [address] [place] [address] [id number] Mariya Reyez Self - patient is the insured MEDICAL (GENERAL) HISTORY Medical History History ICD Code Arthritis Surgical History Surgery Date(Month/Year) Bunionectomy Lumbar Decompression L4-L5 Sling
--- OUTSIDE RECORDS SUMMARY | 2024-12-10 10:39 | XMS_ITS ---
Author Organization [facility] Orthopedics [facility] Address [address] [place], [place] [id number] Care Team Providers Care Suppression Crew Leader Name Role Phone Ariel Yarbrough Primary Care Provider Hernando Perales Unavailable [phone] REASON FOR VISIT 1 yr f/u Encounters Encounter Location Date Provider Diagnosis [facility] Orthopedics [facility] [address] [place], [place] [id number] 02/01/2024 Hernanod De La Torre PLAN OF TREATMENT No Information
--- OUTSIDE RECORDS SUMMARY | 2024-12-10 10:39 | XMS_ITS | Encounter Summary ---
Author Organization [facility] Address [address] [place] [address] Care Team Providers Care Asbestos Handler Name Role Phone Ariel Yarbrough MD Primary Care Provider [phone] Edwin Esparza MD Unavailable Reason for Visit * Diagnostic Imaging (Routine) - Closed Specialty Diagnoses / Procedures Referred By Jung bertrand Referred To Contact Diagnoses Right knee pain, unspecified chronicity Procedures XR Knee Right 3 Views Hernando De La Torre MD Phone: tel: fax: [facility] Referral ID Status Reason Start Date Expiration Date Visits Re quested Visits Authorized [id number] Closed 10/12/2023 11/10/2024 1 1 Encounter Details Date Type Department Care Team (Late st Contact Info) Description 10/12/2023 9:05 AM CDT Hospital Encounter [facility] Orthopedics and Sports Medicine at [address] [address] Social History Tobacco Use Types Packs/Day Years [...] on file Legal Sex Female 11:06 AM LUMBER PILER Gender Identity Not on file Sexual Orientation Not on file documented as of this encounter Functional Status * Audit-C Score Answer Date of Assessment Author 0 [...] on filedocumented in this encounter Care Teams Asbestos Handler Relationship Specialty Start Date End Date Ariel Yarbrough MD PCP - General 12/14/16 Edwin Esparza MD Referring Physician Neurosurgery 01/29/22 documented as of this encounter
--- OUTSIDE RECORDS SUMMARY | 2024-12-10 10:39 | XMS_ITS | Clinical Summary ---
Author Organization [facility] Address [address] [place], [address] [address] Phone Care Team Providers Care Hem Marker Name Role Phone Ariel Yarbrough MD Primary Care Provider [phone] Medications polyethylene glycol (MIRALAX) Powder Use entire 255g bottle with 64oz of clear liquid as directed for colonoscopy prep. 2 Bottle 8 Active Social History Tobacco Use Types Packs/Day Years Used Date Smoking Tobacco: Never Assessed Comments Unknown Sex and Gender Information Value Date Recorded Sex Assigned at Not on file Legal Sex Female 12:06 AM CDT Gender Identity Not on file Sexual Orientation Not on file Plan of Treatment Health Maintenance Due Date Last Done Comments DEXA Bone Density 1945 Hepatitis C Virus (HCV) Screening 1945 TdaP Immunization 1945 Pneumococcal Immunization (5 0+ years) (1 of 1 - PCV) 1997 Zoster Immunization (1 of 2) 1997 Respiratory Syncytial Virus (RSV) Immunization (Adult) (1 - 1-dose 75+ series) 2022 Influenza Immunization (#1) 2024 SARS-COV-2 Immunization ( - season) 2024 Hepatitis B Immunization Aged Out No longer eligible based on patient's age to complete this topic Meningococcal Immunization (ACWY) Aged Out No longer eligible based on patient's age to complete this topic Rotavirus Immunization Aged Out No lo nger eligible based on patient's age to complete this topic Insurance MEDICARE C [employer] on file Care Teams Hem Marker Relationship Specialty Start Date End Date Ariel Yarbrough MD [address] [place] [address] [address] [place] [address] PCP - General Family Medicine 12/02/16
--- OUTSIDE RECORDS SUMMARY | 2024-12-10 10:39 | XMS_ITS | Referral Summary ---
Author Organization [facility] Address [address] [place] [address] Care Team Providers Care Business Services Intern Name Role Phone Ariel Yarbrough MD Primary Care Provider [phone] Edwin Esparza MD Unavailable [phone] Encounters Date Type Department Care Team Description 10/16/2024 9:13 AM CDT - 10/16/2024 11:59 PM CDT Hospital Encounter [facility] [address] [facility] [address] [place] [address] S/P total left hip arthroplasty Discharge Disposition: Discharge to home or self care 10/16/2024 9:40 AM CDT Office Visit [facility] Orthopaedic Surgery [address] [facility] Medical Office Building [address] [place] [address] Vladimir Pearson MD S/P total left hip arthroplasty (Primary Dx); Surgical follow-up care 09/17/2024 11:47 AM CDT - 09/18/2024 10:57 AM CDT Hospital Encounter [facility] [address] [address] [place] [address] Vladimir Pearson MD Osteoarthritis of left hip, unspecified osteoarthritis type (Primary Dx) Discharge Disposition: Discharge to home or self care 09/17/2024 2:45 PM CDT - 09/17/2024 4:25 PM CDT Surgery [facility] Operating Room [address] [place] [address] Vladimir Pearson MD ARTHROPLASTY TOTAL HIP - DEPUY 09/17/2024 2:31 PM CDT Anesthesia Event [facility] Operating Room [address] [place] [address] Nataly Joseph MD Wiethuchter, Kelli P., NP 09/10/2024 Orders Only [facility] Orthopa[facility] Surgery [address] [place] [address] Medical Office Building [address] [place] [address] Vladimir Pearson MD from Last 3 Months Allergies No known active allergies Medications atorvastatin (LIPITOR) 10 mg tabletIndications :hyperlipidemia Take 1 tablet (10 mg total) by mouth nightly 9 Active calcium carbonate/vitamin D3 (CALCIUM 600 WITH VITAMIN D3 ORAL)Indications: supplement Take 1 tablet by mouth 2 (two) times a day Active denosumab (PROLIA) 60 mg/mL syringeIndication s:postmenopausal osteoporosis and high fracture risk Inject 1 mL (60 mg total) under the skin every 6 (six) months Active ketorolac (ACULAR LS) 0.4 % dropsIndications: Post-Op Ocular Inflammation Administer 1 drop into both eyes 2 (two) times a day 5 Active ergocalciferol (VITAMIN D) 50,000 unit capsule TAKE 1 CAPSULE ONCE A WEEK FOR 12 WEEKS, THEN FOLLOW UP WITH YOUR PCP. 12 capsule 5 Active oxyCODONE (ROXICODONE) 5 mg immediate release tabletIndications :Pain Take 1 tablet (5 mg total) by mouth every 4 (four) hours as needed for pain (Breakthrough Pain) 30 tablet 5 Active traMADoL (ULTRAM) 50 mg tablet Take 1 tablet (50 mg total) by mouth every 8 (eight) hours as needed for pain 42 tablet 5 Active acetaminophen 500 mg capsuleIndication s:Pain Take 2 capsules (1,000 mg total) by mouth every 8 (eight) hours 90 tablet 5 Active aspirin 81 mg enteric coated tabletIndications :Deep Vein Thrombosis Prevention Take 1 tablet (81 mg total) by mouth 2 (two) times a day 80 tablet 5 09/19/19 26 Active senna-docusate (PERICOLACE) 8.6-50 mgIndications:con stipation Take 2 tablets by mouth 2 (two) times a day 80 tablet 5 Active meloxicam (MOBIC) 7.5 mg tabletIndications :Pain Take 1 tablet (7.5 mg total) by mouth daily 30 tablet [address] (PROTONIX) 20 mg EC tabletIndications :Mucositis Prophylaxis Take 1 tablet (20 mg total) by mouth daily FOR GI PROTECTION WHILE TAKING MELOXICAM 30 tablet 5 Active Active Problems Problem Noted Date Diagnosed Date Osteoarthritis of left hip, unspecified osteoart hritis type 09/17/2024 Primary localized osteoarthritis of left hip Lumbar stenosis with neurogenic claudication Overview (12/14/2021): Added automatically from request for surgery [id number] Arthropathy of lumbar facet joint 12/30/2015 Osteoarthritis 12/30/2015 Neoplasm of large intestine 12/30/2015 Hyperlipidemia 12/30/2015 Elevated liver enzymes 12/30/2015 Osteopenia 12/30/2015 Polyp of colon 12/30/2015 Stenosis of intervertebral foramina 12/30/2015 Immunizations Immunization Administration Dates Next Due Influenza, Quadrivalent, Rec ombinant, Egg Free, Preservative Free, Intramuscular 03/19/2021,02/28/2020 Influenza, Trivalent, High D ose, Split, Preservative Free, Intramuscular 03/08/2018 Pneumococcal Conjugate PCV 13 12/11/2017 ZOSTER Recombinant 03/15/2020 Social History Tobacco Use Types Packs/Day Years Used Date Smoking Tobacco: Never Smokeless Tobacco: Never Tobacco Cessation:Counseling Given: No AUDIT-C Answer Date Recorded Q1: How often [...] on file Legal Sex Female 11:06 AM TECHNOLOGY APPLICATIONS CONSULTANT Gender Identity Not on file Sexual Orientation Not on file Last Filed Vital Signs Vital Sign Reading Time Taken Comments Blood Pressure 117/53 09/18/2024 3:41 AM CDT retake, patient denies felling dizzy or lightheaded Pulse 70 09/18/2024 3:41 AM CDT Temperature 36.3 C (97.3 F) 09/18/2024 3:27 AM CDT Respiratory Rate 16 09/18/2024 3:32 AM CDT Oxygen Saturation 98% 09/18/2024 3:4 1 AM CDT Inhaled Oxygen Concentration - - Weight 68 kg (150 lb) 09/17/2024 12:29 PM CDT Height 160 cm (5' 3) 09/17/2024 12:29 PM CDT Body Mass Index 26.57 09/17/2024 12:29 PM CDT Plan of Treatment Not on file Medical Devices Implanted Type Area Tank House Supervisor Device Identifier Shelf Expiration Date Model / Serial / Lot Knee Right: Knee [employer] Cup Acetabular Bi-Mentum Od51mm Femoral Proximal Press Fit [id number] - [id number] Implanted:Qty: 1 on 09/17/2024 at [facility] Left: Hip [employer] 10/26/2028 [id number] / / [id number] [employer] Liner Acet Hip Size 28 Poly Bi Mentum Altrx 51mm [id number] - [id number] Implanted:Qty: 1 on 09/17/2024 at [facility] Left: Hip [employer] 12/26/2026 [id number] / / [id number] [employer] Actis Collar Hip 7 High Offset Stem Femoral [id number] - [id number] Implanted:Qty: 1 on 09/17/2024 at [facility] Left: Hip [employer] 07/26/2034 [id number] / / [id number] [employer] Articul/Keyur 28mm Cementless Hip +1.5mm 05/11 Taper Head Femoral Latex Free [id number] - [id number] Implanted:Qty: 1 on 09/17/2024 at [facility] Left: Hip [employer] 07/26/2029 [id number] / / [id number] Procedures Procedure Name Priority Date/Time Associated Diagnosis Comments XR HIP LEFT W PELVIS 2 OR 3 VIEWS Schedule Routine, Read Routine (OP Routine) 10/16/2024 9:18 AM CDT S/P total left hip arthroplasty XR PELVIS ORTHO VIEW ED Urgent/IP Urgent 09/17/2024 4:06 PM CDT ARTHROPLASTY TOTAL HIP - DEPUY 09/17/2024 2:34 PM CDT Primary osteoarthritis of left hip FL AN PROCEDURE PLACEHOLDER Routine 09/17/2024 2:27 PM CDT from Last 3 Months Results * XR Hip Left 2 or 3 Views W Pelvis (10/16/2024 9:18 AM CDT) Anatomical Region Laterality Modality Lower Extremities, Hip, Pelvis Left C omputed Radiography 10/16/2024 9:31 AM CDT Impressions 10/16/2024 9:31 AM CDT Left total hip arthroplasty in near-anatomic position. Electronically signed by: Mariano Connor M.D. Narrative 10/16/2024 9:31 AM CDT EXAMINATION: XR HIP LEFT 2 OR 3 VIEWS W PELVIS HISTORY: Left hip osteoarthritis FINDINGS: 2 views of the left hip and pelvis were performed with comparison made to 09/17/2024. There is a left total hip arthroplasty in near-anatomic position. There is no periprosthetic lucency or fracture. There is mild right hip osteoarthritis. Procedure Note Mariano Connor MD PhD - 10/16/2024 EXAMINATION: XR HIP LEFT 2 OR 3 VIEWS W PELVIS HISTORY: Left hip osteoarthritis FINDINGS: 2 views of the left hip and pelvis were performed with comparison made to 09/17/2024. There is a left total hip arthroplasty in near-anatomic position. There is no periprosthetic lucency or fracture. There is mild right hip osteoarthritis. IMPRESSION: Left total hip arthroplasty in near-anatomic position. Electronically signed by: Mariano Connor M.D. Vladimir Pearson MD IMG XR PROCEDURES Final R esult * XR Pelvis Ortho View (09/17/2024 4:06 PM CDT) Anatomical Region Laterality Modality Body, Pelvis N/A Computed Radiogr aphy 09/17/2024 4:08 PM CDT Impressions 09/17/2024 4:08 PM CDT 1. New total left hip arthroplasty in near-anatomic position. Electronically signed by: Michael Leung M.D. Narrative 09/17/2024 4:08 PM CDT EXAMINATION: XR PELVIS ORTHO VIEW HISTORY: post-op FINDINGS: 1 view examination of the pelvis is read with comparison to 02/16/2024. There is a new total left hip arthroplasty in near-anatomic position. No periprosthetic fracture. There are surrounding postoperative soft tissue swelling and gas. Unchanged mild right hip osteoarthritis. Procedure Note Michael Marshall MD - 09/17/2024 EXAMINATION: XR PELVIS ORTHO VIEW HISTORY: post-op FINDINGS: 1 view examination of the pelvis is read with comparison to 02/16/2024. There is a new total left hip arthroplasty in near-anatomic position. No periprosthetic fracture. There are surrounding postoperative soft tissue swelling and gas. Unchanged mild right hip osteoarthritis. IMPRESSION: 1. New total left hip arthroplasty in near-anatomic position. Electronically signed by: Michael Leung M.D. Luis Felipe Blair MD IMG XR PROCEDURES Final R esult * FL AN PROCEDURE PLACEHOLDER (09/17/2024 2:27 PM CDT) Narrative Nataly Joseph MD - 09/17/2024 2:27 PM CDT Nataly Joseph MD 09/17/2024 2:27 PM Spinal Block Patient location: pre-op holding Reason for block: primary anesthetic Procedure prep: Preprocedure checklist: patient identified, procedure contraindications assessed, site marked, procedure consent, surgical consent, IV checked, risks, benefits and alternatives discussed, monitors and equipment checked and timeout performed Patient position: sitting Procedure performed while patient: sedate with meaningful contact Monitoring: oximetry and blood pressure Supplemental O2: nasal cannula Prep solution: chlorhexadine/alcohol PPE: sterile gloves, provider hat/mask and sterile drape Skin infiltrated with lidocaine 1%: yes Spinal: Approach: midline Introducer used: yes Location: L2-3 Spinal injection: CSF demonstrated, no aspiration of heme and no paresthesias noted Number of attempts: 1 Spinal Needle: Needle type: Elayne Mukul (Getie Mukul) Needle gauge: 25 G Needle length: 9 cm Assessment: Events: patient tolerated procedure well with no complications Nataly Joseph MD ANESTHESIA ORDERABLES Fi nal Result from Last 3 Months Insurance [facility] MEDICARE ADVANTAGE [facility] Address: [facility] [address] [place] [address] [facility] MED[facility] Address: [address] [address] [place] [address] UHC MEDICARE ADVANTAGE Advance Directives For more information, please contact: [phone] Documents on File Type Date Recorded Patient Photocopier Technician Expl anation ADVANCE DIRECTIVE 01/18/2022 11:16 AM Precious r of Software Quality Tester-Medical * Full Code (Latest Code Status on File) Date Activated Date Inactivated Comments 09/17/2024 5:11 PM 09/18/2024 3:02 PM * Full Code Date Activated Date Inactivated Comments 01/27/2022 7:45 PM 01/29/2022 2:47 PM Care Teams Business Services Intern Relationship Specialty Start Date End Date Ariel Yarbrough MD PCP - General 12/14/16 Edwin Esparza MD Referring Physician Neurosurgery 01/29/22
--- OUTSIDE RECORDS SUMMARY | 2024-12-10 10:39 | XMS_ITS | Encounter Summary ---
Author Organization [facility] Address [address] [facility] [place] [address] Care Team Providers Care Network Relations Consultant Name Role Phone Ariel Yarbrough MD Primary Care Provider [phone] Usama Savage MD Unavailable [phone] Encounter Details Date Type Department Care Team (Late st Contact Info) Description 10/17/2023 Lab Requisition [facility] - DermPath Lab [address] [facility] [place] [address] Lyric Isidro DO [address] [facility] [address] [place] [address] Social History Tobacco Use Types Packs/Day Years Used Date Smoking Tobacco: Never Assessed Comments Unknown Sex and Gender Information Value Date Recorded Sex Assigned at Not on file Legal Sex Female 12:47 PM CDT Gender Identity Not on file Sexual Orientation Not on file documented as of this encounter Plan of Treatment Not on file documented as of this encounter Procedures Procedure Name Priority Date/Time Associated Diagnosis Comments DERMATOPATHOLOGY Routine 10/17/2023 1:39 PM CDT documented in this encounter Results * DERMATOPATHOLOGY (10/17/2023 1:39 PM CDT) Case Report Dermatopathology Report Case: [id number] Authorizing Provider: Lyric Isidro DO Collected: 10/17/2023 01:39 PM Ordering Location: [facility] - Received: 10/18/2023 02:03 PM DermPath Lab Pathologist: Rema Le MD Specimen: Skin, left medial cheek 2:01 PM CDT DERMATOPATHOLOGY LABORATORY Final Diagnosis Specimen A. SKIN, left medial cheek: ANGIOFIBROMA (FIBROUS PAPULE) (D21.0) 4 2:01 PM CDT DERMATOPATHOLOGY LABORATORY at 1401 CDT Clinical History R/O BCC AF VS ROSACEA 2:01 PM CDT DERMATOPATHOLOGY LABORATORY Gross Description Specimen A: Received is one formalin filled container labeled with the patient's name and designated left medial cheek. The specimen consists of a shave biopsy measuring 4x2x1 mm. Jar 0. 2:01 PM CDT DERMATOPATHOLOGY LABORATORY Microscopic Description Specimen A. SKIN, left medial cheek: This dome-shaped lesion contains dilated blood vessels, coarse collagen bundles, and stellate fibroblasts. 2:01 PM CDT DERMATOPATHOLOGY LABORATORY Disclaimer An external and internal positive and negative controls are appropriate for the histochemical, immunohistochemical and immunofluorescence stain(s) in this case (if any), except where stated explicitly. The performance characteristics of the stain(s) cited in this report were developed and its performance characteristic determined by the Dermatopathology Laboratory at [facility], directed by Dr. Camilo Christine. These tests need not be, and therefore are not, approved by the [place] Food and Drug Administration. The tests are used for clinical purposes. Billing Codes Specimen Charges Stain Charges 71829 1 2:01 PM CDT DERMATOPATHOLOGY LABORATORY Embedded Images 2:01 PM CDT DERMATOPATHOLOGY LABORATORY Pathology/Cytolo gy TISSUE SPECIMEN FROM SKIN / Unknown 10/17/2023 1:39 PM CDT 10/18/2023 2:03 PM CDT us Lyric Isidro DO LAB - PATHOLOGY/CYTOLOGY ORDERABLES Final Result DERMATOPATHOLOGY LABORATORY [facility] - Department of Dermatology [address] [place] [address], [facility] [phone] documented in this encounter Visit Diagnoses Not on filedocumented in this encounter Care Teams Network Relations Consultant Relationship Specialty Start Date End Date Ariel Yarbrough MD [address] [place] [address] PCP - General Family Medicine 01/09/19 [place] [address] [id number] Orthopedic Surgery 01/17/19 documented as of this encounter
--- OUTSIDE RECORDS SUMMARY | 2024-12-10 10:39 | XMS_ITS | Clinical Summary ---
Author Organization [facility] Address [address] [place] [address] Care Team Providers Care Automobile Insurance Claim Examiner Name Role Phone Ariel Yarbrough MD Primary Care Provider [phone] Edwin Esparza MD Unavailable [phone] Allergies No known active allergies Medications atorvastatin [...] (12/14/2021): Added automatically from request for surgery [id number] Arthropathy of lumbar facet joint 12/30/2015 Osteoarthritis 12/30/2015 Neoplasm of large intestine 12/30/2015 Hyperlipidemia 12/30/2015 Elevated liver enzymes 12/30/2015 Osteopenia 12/30/2015 Polyp of colon 12/30/2015 Stenosis of intervertebral foramina 12/30/2015 Encounters Date Type Department Care Team Description 10/16/2024 9:40 AM CDT Office Visit [facility] Orthopaedic Surgery [address] [place] [address] Medical Office Building [address] [place] [address] Vladimir Pearson MD S/P total left hip arthroplasty (Primary Dx); Surgical follow-up care 10/16/2024 9:13 AM CDT - 10/16/2024 11:59 PM CDT Hospital Encounter [facility] Radiology [address] [place] [address] [address] [place] [address] S/P total left hip arthroplasty Discharge Disposition: Discharge to home or self care 09/17/2024 2:45 PM CDT - 09/17/2024 4:25 PM CDT Surgery [facility] Operating Room [address] [place], [place] [address] Vladimir Pearson MD ARTHROPLASTY TOTAL HIP - DEPUY 09/17/2024 2:31 PM CDT Anesthesia Event [facility] Operating Room [address] [place], [place] [address] Nataly Joseph MD Wiethuchter, Kelli P., NP 09/17/2024 11:47 AM CDT - 09/18/2024 10:57 AM CDT Hospital Encounter [facility] [address] [address] [place], [place] [address] Vladimir Pearson MD Osteoarthritis of left hip, unspecified osteoarthritis type (Primary Dx) Discharge Disposition: Discharge to home or self care 09/10/2024 Orders Only [facility] Orthopaedic Surgery [address] [facility] Medical Office Building [address] [place] [address] Vladimir Pearson MD from Last 3 Months Immunizations Immunization Administration Dates Next Due Influenza, Quadrivalent, Rec ombinant, Egg Free, Preservative Free, Intramuscular 03/19/2021,02/28/2020 Influenza, Trivalent, High D ose, Split, Preservative Free, Intramuscular 03/08/2018 Pneumococcal Conjugate PCV 13 12/11/2017 ZOSTER Recombinant 03/15/2020 Surgical History Surgery Date Site/Laterality Comments AK LAPAROSCOPY SLING OPERATION STRESS INCONT Laparoscopic Sling Operation For Stress Incontinence - (Added by TW Conv) AK NJX AA&/STRD TFRML EPI LUMBAR/SACRAL 1 LEVEL Corticosteroid Inj Transforaminal Approach Lumbar W/ Fluoroscopic Guidance - (Added by TW Conv) AK NJX AA&/STRD TFRML EPI LUMBAR/SACRAL 1 LEVEL Corticosteroid Inj Transforaminal Approach Lumbar W/ Fluoroscopic Guidance - (Added by TW Conv) AK NJX AA&/STRD TFRML EPI LUMBAR/SACRAL 1 LEVEL Corticosteroid Inj Transforaminal Approach Lumbar W/ Fluoroscopic Guidance - bilateral L5-S1 (Added by TW Conv) AK NJX AA&/STRD TFRML EPI LUMBAR/SACRAL 1 LEVEL Corticosteroid Inj Transforaminal Approach Lumbar W/ Fluoroscopic Guidance - (Added by TW Conv) NERVE BLOCK Nerve Block Paravertebral Facet Joint - (Added by TW Conv) BUNIONECTOMY 05/29/1998 - 05/28/1999 FLUORO GUIDED ASPIRATION OR INJECTION LARGE JOINT LEFT 02/23/2024 Left Medical History Medical History Date Comments Hyperlipidemia Osteopenia Osteoporosis COPD (chronic obstructive pulmonary disease) (HC C) patient denies Asthma Sinusitis Family History Medical History Relation Name Comments Cancer Father Heart attack Mother Heart disease Mother Anesthesia problems Neg Hx Relation Name Status Comments Father Mother Social History Tobacco Use Types Packs/Day Years [...] on file Legal Sex Female 11:06 AM SOD STRIPPER Gender Identity Not on file Sexual Orientation Not on file Obstetrics History Last Filed Vital Signs Vital Sign Reading [...] 09/17/2024 12:29 PM CDT Plan of Treatment Health Maintenance Due Date Last Done Comments Depression Screening 1945 Hepatitis C Screening 1945 Osteoporosis Screening-Bone Density Scan 1945 DTaP/Tdap/Td Vaccine (1 - Tdap) 1958 Hepatitis B Screening 1965 Well Visit 65+ 2012 Pneumococcal vaccine 65+ (2 of 2 - PPSV23) 12/11/2018 12/11/2017 Zoster Vaccine (2 of 2) 05/10/2020 03/15/2020 Covid-19 Vaccine (5 - 2023-2 5 season) 2024 12/27/2021, 04/30/2021, 08/18/2020, Additional history exists Influenza Vaccine (Season Ended) 2025 03/19/2021, 02/28/2020, 03/08/2018 Fall Risk Assessment 09/18/2025 09/18/2024 Medical Devices Implanted Type Area Telephone Directory Distributor Driver Device Identifier Shelf Expiration Date Model / Serial / Lot Knee Right: Knee [employer] Cup Acetabular Bi-Mentum Od51mm Femoral Proximal Press Fit [id number] - [id number] Implanted:Qty: 1 on 09/17/2024 at [facility] Left: Hip [employer] 10/26/2028 [id number] / / [id number] [employer] Liner Acet Hip Size 28 Poly Bi Mentum Altrx 51mm [id number] - [id number] Implanted:Qty: 1 on 09/17/2024 at [facility] Left: Hip [employer] 12/26/2026 [id number] / / [id number] [employer] Actis Collar Hip 7 High Offset Stem Femoral [id number] - [id number] Implanted:Qty: 1 on 09/17/2024 at [facility] Left: Hip [employer] 07/26/2034 [id number] / / [id number] [employer] Articul/Keyur 28mm Cementless Hip +1.5mm 05/11 Taper Head Femoral Latex Free [id number] - [id number] Implanted:Qty: 1 on 09/17/2024 at [facility] Left: Hip [employer] 07/26/2029 [id number] / / [id number] Procedures Procedure Name Priority Date/Time Associated Diagnosis Comments XR HIP LEFT W PELVIS 2 OR 3 VIEWS Schedule Routine, Read Routine (OP Routine) 10/16/2024 9:18 AM CDT S/P total left hip arthroplasty XR PELVIS ORTHO VIEW ED Urgent/IP Urgent 09/17/2024 4:06 PM CDT ARTHROPLASTY TOTAL HIP - DEPUY 09/17/2024 2:34 PM CDT Primary osteoarthritis of left hip AK AN PROCEDURE PLACEHOLDER Routine 09/17/2024 2:27 PM [...] mild right hip osteoarthritis. Procedure Note Mariano oCnnor MD PhD - 10/16/2024 EXAMINATION: XR HIP [...] IMG XR PROCEDURES Final R esult * AK AN PROCEDURE PLACEHOLDER (09/17/2024 2:27 PM CDT) Nataly Christopher MD - 09/17/2024 2:27 PM CDT Nataly [...] nal Result from Last [address] [place] [address] [facility] MEDICARE ADVANTAGE [facility] MDCR HMO REF UHC MEDICARE ADVANTAGE Advance Directives For more information, please contact: [phone] Documents on File Type Date Recorded Patient Nonfarm Animal Caretaker Expl anation ADVANCE DIRECTIVE 01/18/2022 11:16 AM Precious r of Cigarette Inspector-Medical * Full Code (Latest Code Status on File) Date Activated Date Inactivated Comments 09/17/2024 5:11 PM 09/18/2024 3:02 PM * Full Code Date Activated Date Inactivated Comments 01/27/2022 7:45 PM 01/29/2022 2:47 PM Care Teams Automobile Insurance Claim Examiner Relationship Specialty Start Date End Date Ariel Yarbrough MD PCP - General 12/14/16 Edwin Esparza MD Referring Physician Neurosurgery 01/29/22
[2024-12-10 11:31] LABS: Alanine Aminotransferase 19 U/L (6-35); Albumin Level 3.9 g/dL (3.5-5.1); Alkaline Phosphatase 57 U/L (38-126); Anion Gap 3 mmol/L (4-12); Aspartate Amino Transferase 30 U/L (14-36); Bilirubin,Total 0.3 mg/dL (0.2-1.3); Blood Urea Nitrogen 16 mg/dL (7-17); Calcium 9.1 mg/dL (8.4-10.2); Carbon Dioxide 31 mmol/L (22-30); Chloride 102 mmol/L (98-107); Estimated Glomerular Filt Rate 56; Glucose 84 mg/dL (65-110); Potassium 4.2 mmol/L (3.4-5.0); Sodium 136 mmol/L (137-145); Total Protein 7.1 g/dL (6.3-8.2)
== END 2024-12-10 10:27 | disposition home or self-care (01) ==
LOC: ANHLAB 10:28
PROVIDERS: PCP Family Medicine; Visit Provider Family Medicine
DX: R74.02 Elevation of levels of lactic acid dehydrogenase [LDH] (principal)
CPT/HCPCS: 36415; 80053

== ENCOUNTER 2025-03-12 15:52 | Outpatient (NON) | payer MEDICARE, SELFPAY ==
--- OUTSIDE RECORDS SUMMARY | 2023-10-12 09:05 | XMS_ITS | Encounter Summary ---
Author Organization [facility] Healthcare Address [address] [place] [address] Care Team Providers Care Punching Machine Operator Name Role Phone Ariel Yarbrough MD Primary Care Provider [phone] Edwin Esparza MD Unavailable Reason for Visit * Diagnostic Imaging (Routine) - Closed Specialty Diagnoses / Procedures Referred By Jung bertrand Referred To Contact Diagnoses Right knee pain, unspecified chronicity Procedures XR Knee Right 3 Views Hernando De La Torre MD Phone: tel: fax: [facility] Medical Group Referral ID Status Reason Start Date Expiration Date Visits Re quested Visits Authorized [id number] Closed 10/12/2023 11/10/2024 1 1 Encounter Details Date Type Department Care Team (Late st Contact Info) Description 10/12/2023 9:05 AM CDT Hospital Encounter [facility] Medical Group Orthopedics and Sports Medicine at [address] [id number] Social History Tobacco Use Types Packs/Day Years Used Date Smoking Tobacco: Never Smokeless Tobacco: Never AUDIT-C Answer Date Recorded Q1: How often do you have a drink containing alcohol? Never 09/17/2024 Q2: How many drinks containi ng alcohol do you have on a typical day when you are drinking? Patient does not drink Q3: How often do you have si x or more drinks on one occasion? Never 09/17/2024 Personal Safety Answer Date Recorded Have you ever been in or are you currently in a harmful physical or emotional relationship or is someone making you feel afraid or unsafe? 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 Never 09/17/2024 12:43 PM CDT Hai Knowles RN Q2: How many drinks containing alcohol do you have on a typical day when you are drinking? Patient does not drink 08/30/2024 10:42 AM CDT Diana Hallman, SIGIFREDO Q3: How often do you have six or more drinks on one occasion? Never 01/12/2024 2:18 PM CDT Anibal Grimaldo documented as of this encounter Plan of Treatment Not on file documented as of this encounter Procedures Procedure Name Priority Date/Time Associated Diagnosis Comments XR KNEE RIGHT 3 VIEWS Schedule Routine, Read Routine (OP Routine) 10/12/2023 9:10 AM CDT Right knee pain, unspecified chronicity documented in this encounter Results * XR Knee Right 3 Views (10/12/2023 9:10 AM CDT) Anatomical Region Laterality Modality Lower Extremities, Knee Right Digital Radiography Narrative 10/12/2023 9:44 AM CDT Today we obtained x-rays of the patient's knee. They showed that the prosthesis is in good position and alignment with no signs of loosening or wear or any other problems. She has a unicompartmental knee replacement medially. The bearing appears to be well situated between the femoral and tibial components. The alignment appears to be quite good and there are no signs of loosening or any other issues. us Hernando De La Torre MD IMG XR PROCEDURES Final R esult documented in this encounter Visit Diagnoses Not on filedocumented in this encounter Care Teams Punching Machine Operator Relationship Specialty Start Date End Date Ariel Yarbrough MD PCP - General 12/14/16 Edwin Esparza MD Referring Physician Neurosurgery 01/29/22 documented as of this encounter
--- OUTSIDE RECORDS SUMMARY | 2025-03-12 17:33 | XMS_ITS | Clinical Summary ---
Author Organization [facility] Address [address] [place], [address] [address] Phone Care Team Providers Care Shank Stapler Name Role Phone Ariel Yarbrough MD Primary Care Provider [phone] Medications polyethylene glycol (MIRALAX) Powder Use entire [...] Health Maintenance Due Date Last Done Comments Hepatitis C Virus (HCV) Screening 1945 TdaP Immunization 1945 Pneumococcal Immunization (5 0+ years) (1 of 1 - PCV) 1997 Zoster Immunization (1 of 2) 1997 Respiratory Syncytial Virus (RSV) Immunization (Adult) (1 - 1-dose 75+ series) 2022 Medicare Initial AWV [id number] 09/27/2023 Influenza Immunization (#1) 2025 SARS-COV-2 Immunization ( - season) 2025 Hepatitis B Immunization Aged Out No longer eligible based on patient's age to complete this topic Human Papillomavirus (HPV) Immunization Aged Out No longer eligible b ased on patient's age to complete this topic Meningococcal Immunization (ACWY) Aged Out No longer eligible based on patient's age to complete this topic Rotavirus Immunization Aged Out No lo nger eligible based on patient's age to complete this topic Insurance MEDICARE [facility] on file Care Teams Shank Stapler Relationship Specialty Start Date End Date Ariel Yarbrough MD [address] [place] [address] [address] [place] [address] PCP - General Family Medicine 12/02/16
--- OUTSIDE RECORDS SUMMARY | 2025-03-12 17:33 | XMS_ITS | Encounter Summary ---
Author Organization [facility] Address [address] [place] [address] Care Team Providers Care Office Equipment Mechanic Name Role Phone Ariel Yarbrough MD Primary Care Provider [phone] Usama Savage MD Unavailable [phone] Encounter Details Date Type Department Care Team (Late st Contact Info) Description 10/17/2023 Lab Requisition [facility] - DermPath Lab [address] [place] [address] Lyric Isidro DO [address] [place] [address] Social History Tobacco Use Types Packs/Day Years [...] PM CDT) Case Report Dermatopathology Report Case: [id number] Authorizing Provider: Lyric Isidro DO Collected: 10/17/2023 01:39 PM Ordering Location: [facility] - Received: 10/18/2023 02:03 PM DermPath [...] characteristic determined by the Dermatopathology Laboratory at [facility], directed by Dr. Camilo Christine. These tests need not be, and therefore are not, approved by the [place] Food and Drug Administration. The tests are used for clinical purposes. Billing Codes Specimen Charges Stain Charges 43146 1 2:01 PM CDT DERMATOPATHOLOGY LABORATORY Embedded Images 2:01 PM CDT DERMATOPATHOLOGY LABORATORY Pathology/Cytolo gy TISSUE SPECIMEN FROM SKIN / Unknown 10/17/2023 1:39 PM CDT 10/18/2023 2:03 PM CDT us Lyric Isidro DO LAB - PATHOLOGY/CYTOLOGY ORDERABLES Final Result DERMATOPATHOLOGY LABORATORY [facility] - Department of Dermatology [address] [place] [address], [facility] [phone] documented in this encounter Visit Diagnoses Not on filedocumented in this encounter Care Teams Office Equipment Mechanic Relationship Specialty Start Date End Date Ariel Yarbrough MD [address] [place] [id number] PCP - General Family Medicine 01/09/19 [place] [id number] [phone] Orthopedic Surgery 01/17/19 documented as of this encounter
--- OUTSIDE RECORDS SUMMARY | 2025-03-12 17:33 | XMS_ITS | Clinical Summary ---
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 Osteoarthritis [...] 03/15/2020 Surgical History Surgery Date Site/Laterality Comments [place] LAPAROSCOPY SLING OPERATION STRESS INCONT Laparoscopic Sling Operation For Stress Incontinence - (Added by TW Conv) [place] NJX AA&/STRD TFRML EPI LUMBAR/SACRAL 1 LEVEL Corticosteroid Inj Transforaminal Approach Lumbar W/ Fluoroscopic Guidance - (Added by TW Conv) [place] NJX AA&/STRD TFRML EPI LUMBAR/SACRAL 1 LEVEL Corticosteroid Inj Transforaminal Approach Lumbar W/ Fluoroscopic Guidance - (Added by TW Conv) [place] NJX AA&/STRD TFRML EPI LUMBAR/SACRAL 1 LEVEL Corticosteroid Inj Transforaminal Approach Lumbar W/ Fluoroscopic Guidance - bilateral L5-S1 (Added by TW Conv) [place] NJX AA&/STRD TFRML EPI LUMBAR/SACRAL 1 LEVEL Corticosteroid Inj Transforaminal Approach Lumbar W/ Fluoroscopic Guidance - (Added by TW Conv) NERVE BLOCK Nerve Block Paravertebral Facet Joint - (Added by TW Conv) BUNIONECTOMY 05/29/1998 - 05/28/1999 FLUORO GUIDED ASPIRATION OR INJECTION LARGE JOINT LEFT 02/23/2024 Left Medical History Medical History Date Comments Hyperlipidemia Osteopenia Osteoporosis COPD (chronic obstructive pulmonary disease) patient denies Asthma Sinusitis Family History Medical [...] on file Legal Sex Female 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 Gender Identity Not on file Sexual Orientation [...] Pneumococcal vaccine 65+ (2 of 2 - PCV20 or PCV21) 12/11/2018 12/11/2017 Zoster Vaccine (2 of 2) 05/10/2020 03/15/2020 Covid-19 Vaccine (5 - 2024-2 6 season) 2025 12/27/2021, 04/30/2021, 08/18/2020, Additional history exists Influenza Vaccine (#1) 2025 , 02/28/2020, 03/08/2018 Fall Risk Assessment 09/18/2025 09/18/2024 Medical Devices Implanted Type Area Police Manager Device Identifier Shelf Expiration Date Model / Serial / Lot Knee Right: Knee [employer] Cup Acetabular Bi-Mentum Od51mm Femoral Proximal Press Fit [id number] - [id number] Implanted:Qty: 1 on 09/17/2024 at [facility] Left: Hip [employer] 10/26/2028 [id number] / / [id number] [employer] Liner Acet Hip Size 28 Poly Bi Mentum Altrx 51mm [id number] - [id number] Implanted:Qty: 1 on 09/17/2024 at [facility] Left: Hip [employer] 12/26/2026 [id number] / / [id number] [employer] Actis Collar Hip 7 High Offset Stem Femoral [id number] - [id number] Implanted:Qty: 1 on 09/17/2024 at [facility] Left: Hip [employer] 07/26/2034 [id number] / / [id number] [employer] Articul/Keyur 28mm Cementless Hip +1.5mm 05/11 Taper Head Femoral Latex Free [id number] - [id number] Implanted:Qty: 1 on 09/17/2024 at [facility] Left: Hip [employer] 07/26/2029 [id number] / / [id number] Insurance [facility] MEDICARE ADVANTAGE [facility] MDCR HMO REF [facility] MEDICARE ADVANTAGE Advance Directives For more information, please contact: [phone] Documents on File Type Date Recorded Patient Bread Slicer Machine Expl anation ADVANCE DIRECTIVE 01/18/2022 11:16 AM Precious r of Limited Radiology Technician-Medical * Full Code (Latest Code Status on File) Date Activated Date Inactivated Comments 09/17/2024 5:11 PM 09/18/2024 3:02 PM * Full Code Date Activated Date Inactivated Comments 01/27/2022 7:45 PM 01/29/2022 2:47 PM Care Teams Slumber Room Attendant Relationship Specialty Start Date End Date Ariel Yarbrough MD PCP - General 12/14/16 Edwin Esparza MD Referring Physician Neurosurgery 01/29/22
--- OUTSIDE RECORDS SUMMARY | 2025-03-12 17:33 | XMS_ITS | Clinical Summary ---
Author Organization [facility] Address [address] [place] [address] Phone Care Team Providers Care Buffing Line Set Up Worker Name Role Phone Ariel Yarbrough MD Primary Care Provider [phone]- [phone] Allergies No known active allergies Medications atorvastatin [...] on file Legal Sex Female 9:03 AM INCLUSION INTERN Gender Identity Not on file Sexual Orientation Not on file Last Filed Vital Signs Vital Sign Reading Time Taken Comments Blood Pressure 147/78 07/20/2021 9:07 AM INCLUSION INTERN Pulse 63 07/20/2021 9:07 AM INCLUSION INTERN Temperature 36.5 C (97.7 F) 07/20/2021 9:07 AM INCLUSION INTERN Respiratory Rate - - Oxygen Saturation - - Inhaled Oxygen Concentration - - Weight 67.1 kg (148 lb) 07/20/2021 9:07 AM INCLUSION INTERN Height 162.6 cm (5' 4) 07/20/2021 9:07 AM INCLUSION INTERN Body Mass Index 25.4 07/20/2021 9:07 AM INCLUSION INTERN Plan of Treatment Health Maintenance Due Date Last Done Comments DTAP/TDAP/TD VACCINES (1 - Tdap) 1966 OSTEOPOROSIS SCREENING 2012 PNEUMOCOCCAL VACCINE 50+ YEA RS (2 of 2 - PCV20 or PCV21) 12/11/2018 12/11/2017 ZOSTER VACCINE (2 of 2) 05/10/2020 03/15/2020 RSV VACCINE (60+ or ) (1 - 1-dose 75+ series) 2022 INFLUENZA VACCINE (#1) 2024 , 02/28/2020, 03/08/2018 Insurance [facility] [id number] Care Teams Buffing Line Set Up Worker Relationship Specialty Start Date End Date Ariel Yarbrough MD PCP - General Family Practice 06/21/21
--- OUTSIDE RECORDS SUMMARY | 2025-03-12 17:33 | XMS_ITS | Clinical Summary ---
Author Organization [facility] Address [address] [place] [address] Care Team Providers Care Extrusion Line Operator Name Role Phone Ariel Yarbrough MD Primary Care Provider [phone] Usama Savage MD Unavailable [phone] Source Comments [facility] [employer],non-owned Affiliates and Associated Physician Practices is amultiple site organization consisting of ambulatory clinics and hospital sitesin [place], [place], [place] and [place]. This disclosure is being madepursuant to the Care Everywhere program and may not contain all information available regarding this patient. Last updated 18.[facility] [employer] Allergies No known active allergies Medications * [...] yrs (1 - 1-dose 75+ series) 2022 DEPRESSION SCREENING 05/29/2024 MEDICARE AWV CALENDAR YEAR 2024 COVID-19 VACCINE (1 - 2023-2 5 season) 2025 INFLUENZA VACCINE (#1) 2025 HEPATITIS B VACCINE [...] patient's age to complete this topic Insurance [facility] MANAGED MEDICARE ADV Care Teams Extrusion Line Operator Relationship Specialty Start Date End Date Ariel Yarbrough MD [address] [place] [phone] PCP - General Family Medicine 01/09/19 [place] [id number] [facility] [address] [place] [phone] Orthopedic Surgery 01/17/19
[2025-03-12 18:22] LABS: Add Urine Microscopic? YES; Appearance Urine Cloudy (Clear); Glucose Urine UA Negative (Negative); Leukocyte Esterase Ur 3+ LEU/UL (Negative); Nitrate Urine Negative (Negative); Non Pathogenic Casts 0-2; Specific Grav Ur 1.014 (1.001-1.035)
== END 2025-03-12 15:53 | disposition home or self-care (01) ==
LOC: ANHGOSHLAB 15:53
PROVIDERS: PCP Family Medicine; Visit Provider Nurse Practitioner Family
DX: N30.90 Cystitis, unspecified without hematuria (principal)
CPT/HCPCS: 81001; 87077; 87086; 87186